=== PATIENT | male | born 1960 | race Caucasian/White ===

== ENCOUNTER 2018-12-03 19:11 | Emergency (ER) | payer MEDICAID ==
[2018-12-03] MEDS ORDERED: Ibuprofen 800 MG Tab PO ONE (19:48)
[2018-12-03] MEDS ORDERED: Ibuprofen 800 MG Tab ONE (19:50)
--- NOTE | 2018-12-03 20:23 | EDM.PDOC ---
ED HPI GENERAL MEDICAL PROBLEM - General Chief Complaint: General Stated Complaint: SHOULDER PAIN Time Seen by Provider: 12/03/18 19:40 Source of Information: Reports: Patient History Limitations: Reports: No Limitations - History of Present Illness INITIAL COMMENTS - FREE TEXT/NARRATIVE: Pt is from [place], [place]. He is visiting the area . Pt claims that he has had left rotator cuff injury about 1 year ago and waiting on surgery. He is here in the emergency room as his pain has got worse. Claims his left shoulder hurts all the time for past 1 wk. He has not tried any medications. Rtes his pain at 10/10. Duration: Week(s): (1), Getting Worse Quality: Reports: Ache Severity: Severe Improves with: Reports: None Worsens with: Reports: None Associated Symptoms: Denies: Confusion, Chest Pain, Cough, Diaphoresis, Nausea/ Vomiting, Weakness ED ROS GENERAL - Review of Systems Review Of Systems: See Below Constitutional: Denies: Fever, Chills, Malaise, Night Sweats HEENT: Denies: Ear Pain, Throat Pain, Vertigo Respiratory: Denies: Shortness of Breath, Wheezing, Cough, Sputum Cardiovascular: Denies: Chest Pain, Lightheadedness GI/Abdominal: Denies: Abdominal Pain, Nausea, Vomiting Musculoskeletal: Reports: Joint Pain. Denies: Foot Pain, Joint Swelling, Muscle Pain, Muscle Stiffness Skin: Denies: Bruising, Pruritis, Rash Neurological: Denies: Confusion, Dizziness, Headache ED EXAM, GENERAL - Physical Exam Exam: See Below Exam Limited By: No Limitations General Appearance: Alert, WD/WN, No Apparent Distress Eye Exam: Bilateral Eye: EOMI, PERRL Ears: Normal External Exam, Normal Canal, Hearing Grossly Normal, Normal TMs Ear Exam: Bilateral Ear: Auricle Normal, Canal Normal, TM normal Nose: Normal Inspection, Normal Mucosa, No Blood Throat/Mouth: Normal Inspection, Normal Lips, Normal Teeth, Normal Gums, Normal Oropharynx, Normal Voice, No Airway Compromise Head: Atraumatic, Normocephalic Neck: Normal Inspection, Supple, Non-Tender, Full Range of Motion Respiratory/Chest: No Respiratory Distress, Lungs Clear, Normal Breath Sounds, No Accessory Muscle Use, Chest Non-Tender Cardiovascular: Normal Peripheral Pulses, Regular Rate, Rhythm, No Edema, No Gallop, No JVD, No Murmur, No Rub Extremities: Normal Inspection, Normal Range of Motion, No Pedal Edema, Normal Capillary Refill, Other (Left shoulder: pt dd take off his shirt without any discomfort. He does have weakness with abduction of the left shoulder. Tender all over the shoulder.) Course - Vital Signs Text/Narrative:: Pt does have chronic left shoulder rotator cuff injury.I do not see any acute swelling of the joint. HE does have good ROM other then duction of the shoulder. He claims he has not taken any medication. He does not appear in any acute discomfort. He did receive motin 800mg orally in the emergency room. Motrin 800mg 3 times daily with food.Advised intermittent het to the shoulder.Advised to followup with his primary care provider tomorrow. Departure - Departure Time of Disposition: 20:15 Disposition: Home, Self-Care 01 Condition: Good Clinical Impression: Chronic left shoulder pain - Discharge Information *PRESCRIPTION DRUG MONITORING PROGRAM REVIEWED*: Not Applicable *COPY OF PRESCRIPTION DRUG MONITORING REPORT IN PATIENT JULIETH: Not Applicable Forms: ED Department Discharge Additional Instructions: Take Motrin 800mg every 8 hours as needed for pain' - Problem List & Annotations (1) Chronic left shoulder pain SNOMED Code(s): 09245800 Code(s): M25.512 - PAIN IN LEFT SHOULDER; G89.29 - OTHER CHRONIC PAIN Status: Acute - Problem List Review Problem List Initiated/Reviewed/Updated: Yes - Assessment/Plan Assessment:: Chronic left shoulder pain. Plan: Pt does have chronic left shoulder rotator cuff injury.I do not see any acute swelling of the joint. HE does have good ROM other then duction of the shoulder. He claims he has not taken any medication. He does not appear in any acute discomfort. He did receive motin 800mg orally in the emergency room. Motrin 800mg 3 times daily with food.Advised intermittent het to the shoulder.Advised to followup with his primary care provider tomorrow.
== END 2018-12-03 19:52 | disposition home or self-care (01) ==
LOC: LB.ED 19:11
DX: M25.512 Pain in left shoulder (principal); G89.29 Other chronic pain
CPT/HCPCS: 99283; A9270